=== PATIENT | female | born 1980 | race Caucasian/White ===

== ENCOUNTER 2017-09-19 15:59 | Outpatient (CLI) | payer OTHER ==
[2017-09-19 16:13] LABS: BASOPHILS % 0.4 (0.0-1.5); EOSINOPHILS % 2.1 % (0.0-6.8); MEAN CORPUSCULAR HEMOGLOBIN 28.9 pg (28.0-34.0); MEAN CORPUSCULAR VOLUME 85.5 fl (80.0-100.0); MONOCYTES % 3.6 % (0.0-11.0); NEUTROPHILS # 10.2 # k/uL (1.4-7.7)
[2017-09-19 16:32] LABS: eGFR (African) > 60; eGFR (Non-African) > 60
--- NOTE | 2017-09-19 18:50 | Diagnostic Imaging Report ---
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 Comparison exams: None available Technique: CT Abdomen/pelvis without contrast protocol.~ Findings: Liver, spleen, adrenal glands, pancreas and gallbladder are without irregularity given exam technique. No gallstone. Minimal right perinephric stranding. 5 mm right inferior calyx calcification. 4 mm mid left renal calcification. Ureters do not appear to be dilated in their course through the abdomen and pelvis. No central calcifications. Bladder contracted with thickened mucosa. ~ Abdominal aorta without aneurysm or peripheral atherosclerotic disease. Cardiac silhouette not enlarged. No pericardial effusion. Bowel without contrast limiting evaluation. No evidence for acute mesenteric inflammation or free air. Stool within the large bowel limiting sensitivity. Appendix is visualized and is without inflammatory changes. Hiatal hernia. Osseous structures appropriate for age. Lung bases with dependent atelectasis. No effusion. Impression: Bilateral nephrolithiasis. No evidence for ureterolithiasis. Mild right perinephric stranding. Cannot exclude component of nephritis. Correlate clinically. Contracted bladder with thickened mucosa - nondistention versus inflammation/ infection. ~Correlate with laboratory values. No gallstone. Significant stool throughout the large bowel - constipation. Hiatal hernia. Lung base atelectasis. No consolidation or effusion. ~ Electronically signed on Sep 19, 2017 5:32:38 PM SCREEN PRINTING MACHINE OPERATOR by: Jarad MINER
== END 2017-09-19 16:00 ==
LOC: RAD 15:59
PROVIDERS: ATTEND Physician Assistant
DX: R10.31 Right lower quadrant pain (principal); R50.81 Fever presenting with conditions classified elsewhere
CPT/HCPCS: 36415; 74177; 82565; 85025; Q9966